=== PATIENT | female | born 1980 | race Caucasian/White ===

== ENCOUNTER → 2017-08-04 06:35 | Outpatient (CLI) | payer OTHER, SELFPAY ==
--- NOTE | 2017-08-04 | DI.MRI.S_ITS ---
PROCEDURE: MR ANKLE RT WO CON INDICATIONS: Posterior right ankle/heel pain TECHNIQUE: Noncontrast sagittal T1 spin echo and T2 fast spin echo with fat saturation, axial proton density fast spin echo and T2 fast spin echo with fat saturation, coronal T1 spin echo and T2 fast spin echo with fat saturation through the ankle/hindfoot. COMPARISON: None. FINDINGS: Image quality: Excellent. Bones and joints: No bone marrow contusions or fractures. No hindfoot coalitions. No osteochondral injuries of the talar dome. No pathologic joint effusions. Medial structures: The posterior tibialis, flexor digitorum longus, and flexor hallucis longus tendons are intact. There is minimal fluid surrounding the posterior tibialis and flexor digitorum longus tendons in keeping with low-grade tenosynovitis. The posterior tibial neurovascular bundle appears normal within the tarsal tunnel, without extrinsic mass effect. The deep layer (anterior and posterior tibiotalar ligaments) and superficial layer (tibionavicular, tibiospring, and tibiocalcaneal ligaments) of the deltoid ligament appear normal. The spring ligament components (superomedial calcaneonavicular, medioplantar oblique calcaneonavicular, and inferoplantar longitudinal ligaments) are intact. Lateral structures: The anterior talofibular, calcaneofibular, and posterior talofibular ligaments appear intact. More superiorly, the anterior and posterior tibiofibular ligaments appear intact, as is the intermalleolar ligament. The tibiofibular syndesmosis is normal in width at 2 mm or less. Thickening of the peroneus longus tendon is present with intrasubstance signal change and T2 hyperintensity in keeping with tendinopathy. This is primarily seen distal to the tip of the lateral malleolus. A discrete tear is not visualized. There is associated surrounding tenosynovitis. The peroneus brevis tendon appears grossly intact although there is minimal distal tenosynovitis, for example image 33 series 6. Adjacent bony peroneal tubercle and retrotrochlear prominence are normal in size. The sinus tarsi demonstrates normal fatty signal, without edema, fibrosis, or cyst formation. Visualized sinus tarsi components (cervical ligament, interosseous talocalcaneal ligament, roots of the inferior extensor retinaculum) appear normal. The calcaneonavicular and calcaneocuboid components of the bifurcate ligament appear intact. The dorsal calcaneocuboid ligament appears intact. Anterior structures: The tibialis anterior, extensor hallucis longus, and extensor digitorum longus tendons appear intact. The dorsal talonavicular ligament appears intact. Posterior and plantar structures: Achilles tendon is intact, although there is minimal distal insertional intrasubstance signal change and paratenonitis. Thickening and intrasubstance T2 hyperintensity involving the medial band of the plantar fascia at the calcaneal attachment. IMPRESSION: Peroneus longus tendinopathy and thickening, with surrounding tenosynovitis. Minimal peroneus brevis tenosynovitis. Medial band plantar fasciitis. Minimal Achilles insertional tendinopathy. Dictated by: Henry Huynh M.D. on 08/04/2017 at 8:30 Approved by: Henry Huynh M.D. on 08/04/2017 at 8:41
== END ==
PROVIDERS: Visit Provider Podiatrist
DX: M25.571 Pain in right ankle and joints of right foot (principal); M79.671 Pain in right foot; M65.9 Synovitis and tenosynovitis, unspecified; M72.2 Plantar fascial fibromatosis
CPT/HCPCS: 73721

== ENCOUNTER → 2019-04-28 10:09 | Outpatient (CLI) | payer OTHER, SELFPAY | PROVIDERS: Visit Provider Nurse Practitioner | DX: J02.9 Acute pharyngitis, unspecified (principal) | CPT/HCPCS: 87070 ==

== ENCOUNTER 2020-07-13 19:20 | Emergency (ER) | payer OTHER, SELFPAY ==
[2020-07-13] VITALS (7 sets, daily range): BP systolic 119–121; BP diastolic 58–75; PULSE 67–86; RESP 15; TEMP 37.1; O2SAT 93–100; BMI 29.2
--- NOTE | 2020-07-13 21:39 | PC.NURSE ---
friend out to desk stating that the baby crying in the next room was making her loose her mind (her = patient). Pt moved to another room.
--- NOTE | 2020-07-13 22:09 | ED.HEATRA ---
HPI - Head Injury General Chief complaint: Head Injury Stated complaint: Hammer Fell On Head, Not Doing So Well Time Seen by Provider: 07/13/20 22:00 Source: patient Mode of arrival: Ambulatory Limitations: no limitations History of Present Illness HPI Narrative: Patient is a 40-year-old female who presents with closed head injury. She states that a framing hammer which is approximately 20 oz is fell on top of her head from the top of a ladder. She did not lose consciousness is. She has not vomited she does have some nausea pain and sensitivity to light. She is not on any anti-platelet or anticoagulation medication. She denies any neck pain, no numbness tingling or weakness. She took 500 mg of Tylenol prior to right. MD Complaint: head injury Onset (ago): hour(s) Related Data Home Medications Medication Instructions Recorded Confirmed albuterol sulfate 90 mcg/actuation 2 puff INHALATION Q6H PRN 10/15/17 04/28/19 breath activated powder inhaler Allergies Allergy/AdvReac Type Severity Reaction Status Date / Time No Known Drug Allergies Allergy Verified 07/13/20 19:30 Review of Systems Review of Systems ROS Unobtainable: All systems reviewed & are unremarkable except as noted in HPI and below Constitutional Constitutional: Denies chills, Denies fever(s), Reports headache(s), Denies lethargy and Denies weakness Eyes Eyes: Denies change in vision, Denies eye discharge, Denies irritation and Denies loss of vision ENT Ears, Nose, Mouth, and Throat: Denies change in voice, Reports headache(s), Denies neck pain and Denies sore throat Cardiovascular Cardiovascular: Denies chest pain, Denies irregular heart rhythm, Denies lightheadedness, Denies palpitations, Denies dyspnea, Denies dyspnea on exertion and Denies orthopnea Respiratory Respiratory: Denies cough, Denies dyspnea, Denies dyspnea on exertion and Denies wheezing Gastrointestinal Gastrointestinal: Denies abdominal pain, Denies diarrhea, Reports nausea and Denies vomiting Musculoskeletal Musculoskeletal: Denies neck pain Integumentary/Breasts Skin/Breast: Denies pruritus, Denies erythema, Denies rash and Denies wounds Neurologic Neurologic: Reports headache(s), Denies loss of vision and Denies weakness Endocrine Endocrine: Denies palpitations Allergic/Immunologic Allergic/Immunologic: Denies wheezing Patient History Surgical History History of tonsillectomy Status post delivery Status post delivery Status post dilation and curettage Status post hysterectomy Social History Smoking Status: Never smoker alcohol intake: current Smoking Status: Never smoker alcohol intake frequency: holidays/special occasions only Substance Use Type: does not use Exam Initial Vital Signs Initial Vital Signs: Vital Signs Temperature 98.7 F 07/13/20 19:30 Pulse Rate 73 07/13/20 19:30 Respiratory Rate 15 07/13/20 19:30 Blood Pressure 121/75 07/13/20 19:30 Pulse Oximetry 100 07/13/20 19:30 GENERAL: 40-year-old female in dark room appears uncomfortable HEENT: Head atraumatic, no hematoma no laceration no crepitations depressions difficult to see where the hammer actually hit, EOMI, pupils reactive, no nystagmus face symmetric, moist mucous membranes NECK: No vertebral tenderness step-offs full flexion extension CARDIOVASCULAR: Regular rate and rhythm without murmurs, rubs or gallops. RESPIRATORY: Breath sounds equal bilaterally, no wheezes rales or rhonchi. ABDOMEN: Soft, nontender. Normoactive bowel sounds all 4 quadrants. No guarding or rebound. EXTREMITIES: Normal range of motion, no clubbing or edema. Neurovascularly intact NEUROLOGICAL: Alert and oriented x4.Normal gait and speech. Cranial nerves II through XII grossly intact. Sales Administrator strength equal bilaterally SKIN: Warm, dry, no laceration, no petechiae, no rashes or lesions. Scores [place] CT Head Rule Age <16 years old: No Patient on blood thinners: No Seizure after injury: No Exclusion: Patient NOT Excluded, Proceed to next steps GCS < 15 at 2 hr post trauma: No Suspected open or depressed skull fracture: No Any sign of basilar skull fracture (hemotympanum, raccoon eyes, Squires's sign, CSF goldy-/rhinorrhea): No Two or more episodes of vomiting: No Age greater or equal to 65 years: No Retrograde amnesia to the event greater or equal to 30 min: No Dangerous Mechanism (pedestrian vs. mv, occupant ejected from mv, fall from >3 ft or > 5 stairs): No Recommendation: CT unnecessary Course Orders Ordered: Discontinued Medications Ketorolac Tromethamine (Ketorolac 30 Mg/Ml Vial) 30 mg IM NOW ONE Stop: 07/13/20 22:15 Last Admin: 07/13/20 22:19 Dose: 30 mg Documented by: NEREIDA Ondansetron HCl (Ondansetron 4 Mg Odt) 4 mg SL NOW ONE Stop: 07/13/20 22:15 Last Admin: 07/13/20 22:19 Dose: 4 mg Documented by: NEREIDA Vital Signs Vital signs: Vital Signs - 8 hr 07/13/20 19:30 07/13/20 21:45 07/13/20 22:00 Temperature 98.7 F Pulse Rate 73 75 67 Respiratory Rate 15 Blood Pressure 121/75 Pulse Oximetry 100 97 95 07/13/20 22:23 07/13/20 22:30 07/13/20 23:00 Temperature Pulse Rate 86 67 70 Respiratory Rate Blood Pressure 119/65 Pulse Oximetry 97 96 93 07/13/20 23:04 Temperature Pulse Rate 75 Respiratory Rate Blood Pressure 120/58 L Pulse Oximetry 97 MDM - Head Injury MDM Narrative Medical decision making narrative: Patient likely has a concussion but no evidence of depressed skull fracture or evidence of significant trauma or severe mechanism. This time does not meet criteria for head CT. She is given Toradol and Zofran on fell asleep. Discussed warning signs with her and went to return to the ED. Discharge Plan Departure Patient Disposition: Home Clinical Impression: Closed head injury Qualifiers: Encounter type: initial encounter Qualified Code(s): S09.90XA - Unspecified injury of head, initial encounter Instructions: DI for Closed Head Injury Activity Restrictions/Additional Instructions: *You have been diagnosed with closed head injury *What to do: At this time he likely had concussion syndrome. No indication for imaging at this time. Please follow head injury instructions given in packing *Continue to take medications as directed Zofran 4 mg every 8 hours if needed for nausea or vomiting Tylenol 1000 mg every 6 hours if needed for pain Ibuprofen 800 mg every 8 hours if needed for [id number] pain *Follow up with your primary care provider in 2-3 days *Return to ER if you should have weakness, confusion, persistent vomiting, worsening headache or any new, worsening or concerning symptoms Prescriptions: No Action albuterol sulfate 90 mcg/actuation aerosol powdr breath activated 2 puff INHALATION Q6H PRNRF: 0 Referrals: Julio César Angel ARNP [Primary Care Provider] - Stand Alone Forms: Work Release Note
[2020-07-13] MEDS: ONDANSETRON 4 MG ODT SL (22:19)
[2020-07-13] MEDS: KETOROLAC 30 MG/ML VIAL IM (22:19)
== END 2020-07-13 23:18 | disposition home or self-care (01) ==
PROVIDERS: Emergency Provider Emergency Medicine; PCP Registered Nurse Diabetes Educator
DX: S09.90XA Unspecified injury of head, initial encounter (principal); W20.8XXA Other cause of strike by thrown, projected or falling object, initial encounter; R10.32 Left lower quadrant pain; R53.83 Other fatigue; Z00.00 Encounter for general adult medical examination without abnormal findings; Z83.2 Family history of diseases of the blood and blood-forming organs and certain disorders involving the immune mechanism
CPT/HCPCS: 36415; 80053; 80061; 81256; 82306; 82607; 84443; 85025; 96372; 99283; J1885

== ENCOUNTER → 2020-07-27 11:57 | Outpatient (CLI) | payer OTHER, SELFPAY ==
--- NOTE | 2020-07-27 | DI.MG.S_ITS ---
BILATERAL DIGITAL SCREENING MAMMOGRAM 3D/2D WITH CAD WITH AUGMENTATION: 07/27/2020 CLINICAL: Routine screening. Family history of breast cancer. Comparison is made to exams dated: 12/25/2010 mammogram and 12/25/2010 [facility]. The tissue of both breasts is heterogeneously dense. This may lower the sensitivity of mammography. Current study was also evaluated with a Computer Aided Detection (CAD) system. Bilateral breast implants are intact. There is a new 0.4 cm irregular asymmetry in the right breast middle depth central to the nipple seen on the craniocaudal view only 6 cm from the nipple. No other significant masses, calcifications, or other findings are seen in either breast. IMPRESSION: INCOMPLETE: NEEDS ADDITIONAL IMAGING EVALUATION The new 0.4 cm irregular asymmetry in the right breast is indeterminate. Additional views with possible ultrasound are recommended. This exam was interpreted at Station ID: [id number]. NOTE: For mammograms, a report in lay terms will be sent to the patient. Approximately 15% of breast malignancies will not be visualized mammographically. In the management of a palpable breast mass, a negative mammogram must not discourage biopsy of a clinically suspicious lesion. Electronically Signed By: Karan Walker acr/:07/27/2020 12:56:32 letter sent: Additional Imaging Needed ACR BI-RADS Category 0: Incomplete [id number]
--- NOTE | 2020-07-27 11:58 | DI.US.S_ITS ---
PROCEDURE: US PELVIC COMPLETE INDICATIONS: eval LLQ pain x 2 months, hx ovarian cyst TECHNIQUE: Real-time scanning was performed of the pelvic organs, with image documentation. Additional endovaginal scanning was necessary due to incomplete visualization of the adnexal and endometrial structures by transabdominal scanning. COMPARISON: None. FINDINGS: Uterus: Status post hysterectomy. Ovaries: The right ovary measures 3.0 x 4.4 x 4.7 centimeters. There is a complex cyst in the right ovary measuring 2.6 x 3.3 x 3.5 centimeters with mild peripheral vascularity. The left ovary measures 1.9 x 3.6 x 3.9 centimeters. There is a solid left ovarian mass measuring 1.0 x 0.8 x 1.3 centimeters. No associated vascularity with this lesion. Other: No pathologic free abdominal or pelvic fluid. IMPRESSION: Nonspecific solid appearing left ovarian mass, without associated vascularity. This may represent endometrioma although neoplasm cannot be strictly excluded. Correlation with any prior outside studies would be helpful, if available. Otherwise, consider a follow-up in 6-8 weeks to document stability/resolution and help exclude neoplasm. Complex cyst in the right ovary is likely hemorrhagic and physiologic, although again follow-up in 6-8 weeks recommended to help exclude neoplasm (considered unlikely). Dictated by: Eleazar Benavides M.D. on 07/27/2020 at 13:33 Approved by: Eleazar Benavides M.D. on 07/27/2020 at 13:34
== END ==
PROVIDERS: PCP Registered Nurse Diabetes Educator; Referring Provider Registered Nurse Diabetes Educator; Visit Provider Registered Nurse Diabetes Educator
DX: Z00.00 Encounter for general adult medical examination without abnormal findings (principal); R53.83 Other fatigue; R10.32 Left lower quadrant pain; R19.00 Intra-abdominal and pelvic swelling, mass and lump, unspecified site; N83.201 Unspecified ovarian cyst, right side; N64.89 Other specified disorders of breast; Z83.2 Family history of diseases of the blood and blood-forming organs and certain disorders involving the immune mechanism
CPT/HCPCS: 76856; 77063; 77067

== ENCOUNTER → 2020-08-06 16:52 | Outpatient (CLI) | payer OTHER, SELFPAY ==
[2020-08-06 18:06] LABS: HEMOLYSIS < 15 (0-50); Iron 86 ug/dL (37-170)
[2020-08-06 18:17] LABS: Percent Iron Saturation 28 % (15-50); Total Iron Binding Capacity 307 ug/dL (265-497); Transferrin 249 mg/dL (206-381)
[2020-08-06 18:39] LABS: Cancer Antigen 125 7.7 U/mL (0-35)
[2020-08-06 18:43] LABS: Ferritin 99 ng/mL (6-137)
[2020-08-08 12:01] LABS: Human Epididymis Prot 4 32.4 pmol/L (0.0-63.6)
== END ==
PROVIDERS: Obstetrics & Gynecology; PCP Registered Nurse Diabetes Educator; Referring Provider Registered Nurse Diabetes Educator; Visit Provider Registered Nurse Diabetes Educator
DX: R19.09 Other intra-abdominal and pelvic swelling, mass and lump (principal); G47.30 Sleep apnea, unspecified; R53.83 Other fatigue; Z14.8 Genetic carrier of other disease
CPT/HCPCS: 36415; 82728; 83540; 83550; 86304; 86305

== ENCOUNTER → 2020-08-27 09:35 | Outpatient (CLI) | payer OTHER, SELFPAY ==
--- NOTE | 2020-08-27 09:36 | DI.MG.S_ITS ---
UNILATERAL RIGHT DIGITAL DIAGNOSTIC MAMMOGRAM 3D/2D WITH ADDITIONAL VIEWS: 08/27/2020 CLINICAL: Additional evaluation requested from prior study. Comparison is made to exams dated: 07/27/2020 mammogram and 12/25/2010 mammogram - [facility]. The tissue of right breast is heterogeneously dense. This may lower the sensitivity of mammography. Right breast implant was not imaged on additional views. The 0.4 cm irregular asymmetry in the right breast middle depth central to the nipple seen on the craniocaudal view only is no longer seen and most likely is fibroglandular tissue. This is not seen in additional views. No other significant masses or calcifications are seen in the breast. IMPRESSION: INCOMPLETE: NEEDS ADDITIONAL IMAGING EVALUATION An ultrasound is recommended to confirm resolution of the irregular asymmetry in the right breast middle depth central to the nipple seen on the screening craniocaudal view only. This was performed immediately following this exam. This exam was interpreted at Station ID: [id number]. NOTE: For mammograms, a report in lay terms will be sent to the patient. Approximately 15% of breast malignancies will not be visualized mammographically. In the management of a palpable breast mass, a negative mammogram must not discourage biopsy of a clinically suspicious lesion. Electronically Signed By: Tiarra salazar/:08/27/2020 10:04:19 ACR BI-RADS Category 0: Incomplete [id number]
--- NOTE | 2020-08-27 09:36 | DI.US.S_ITS ---
LIMITED ULTRASOUND OF RIGHT BREAST: 08/27/2020 CLINICAL: Patient returns today to evaluate a focal asymmetry in the right breast. Comparison is made to exams dated: 08/27/2020 mammogram, 07/27/2020 mammogram, 12/25/2010 mammogram, and 12/25/2010 [facility]. Real-time ultrasound of the right breast 7-11 o'clock region was performed. Magana scale images of the real-time examination were reviewed. No significant abnormalities were seen sonographically in the right breast. Specifically, no finding to correspond to the patient's screening mammographic abnormality. IMPRESSION: PROBABLY BENIGN There is no sonographic correlate to the patient's screening mammography abnormality. This is probably benign tissue pattern on the mammogram. A follow-up right mammogram in 6 months is recommended to demonstrate stability. Findings and recommendations were conveyed to the patient at time of exam. This exam was interpreted at Station ID: [id number]. Electronically Signed By: Tiarra salazar/:08/27/2020 11:33:18 letter sent: Followup Recommended Ultrasound BI-RADS: 3 Probably benign
== END ==
PROVIDERS: PCP Registered Nurse Diabetes Educator; Referring Provider Registered Nurse Diabetes Educator; Visit Provider Registered Nurse Diabetes Educator
DX: R92.8 Other abnormal and inconclusive findings on diagnostic imaging of breast (principal); N64.89 Other specified disorders of breast
CPT/HCPCS: 76642; 77065; G0279

== ENCOUNTER → 2020-11-19 08:03 | Outpatient (CLI) | payer OTHER, SELFPAY ==
[2020-11-19 18:50] LABS: COVID19 -Nasal RAPID Negative (Negative)
== END ==
PROVIDERS: PCP Registered Nurse Diabetes Educator; Visit Provider Obstetrics & Gynecology
DX: Z20.822 Contact with and (suspected) exposure to COVID-19 (principal); Z01.812 Encounter for preprocedural laboratory examination
CPT/HCPCS: 87635

== ENCOUNTER 2020-11-20 09:54 | Day surgery (SDC) | payer OTHER, SELFPAY ==
[2020-11-13 12:35] VITALS: BMI 30.6
[2020-11-20] VITALS (14 sets, daily range): BP systolic 78–118; BP diastolic 27–72; PULSE 72–91; RESP 8–18; TEMP 36.4–36.8; O2SAT 93–99; BMI 30.6
--- NOTE | 2020-11-20 | PATH_ITS ---
[facility] Accession Number: [id number] . 01 Material submitted: . FALLOPIAN/OVARY - RIGHT FALLOPIAN TUBE AND OVARY . 02 Diagnosis: Right Fallopian Tube and Ovary, Laparoscopic Right Salpingo-oophorectomy (Weight 9 grams): Ovary with corpora albicantia, degenerating corpora lutea, corpus luteum cysts, patchy stromal thecosis, and a benign serous cyst (4 mm). Fallopian tube with multiple paratubal cysts (1-2 mm) and benign Walthard nests; negative for atypia or malignancy. MRV 11/22/2020 1536 Local . 02 Electronically signed: . Alyse Vences MD, Pathologist NPI- [id number] . 01 Gross description: . The specimen is received in formalin, labeled right fallopian tube and ovary and consists of a 9-gram, 3.5 x 2.7 x 1.5 cm ovary with a thompson cerebriform external surface. Sectioning reveals thompson-pink cut surfaces with multiple corpora albicantia and corpus luteum. A 0.4 x 0.3 x 0.2 cm smooth-walled serous-filled cyst is identified with no papillary excrescences. Additionally received is a 4.0 cm in length by 1.0 cm in diameter fallopian tube with a pink-purple ragged serosa and multiple paratubal cysts ranging from 0.1-0.2 cm. Sectioning reveals a thompson-pink mucosa and a stellate lumen measuring 0.3 cm in diameter. Desk Interviewer sections are submitted. . A1-A3: Desk Interviewer ovary. A4: Fallopian tube, margin (blue, en face), central cross sections and bisected fimbria. ([id number]) /MRV 11/21/[address] [place] [address] . 02 Pathologist provided ICD-10: N83.201, N83.202 . 02 CPT . 156385 Performed at: 01 [facility] [address] [id number] MD Renny Ortega MD Phone: [phone] Performed at: 02 [facility] [address] [place], [place] [id number] MD Gayle Knowles MD Phone: [phone]
[2020-11-20] MEDS: LACTATED RINGERS 1,000 ML 42 ML IV (10:34)
--- NOTE | 2020-11-20 11:32 | PM.HP.1 ---
History of Present Illness History of Present Illness Date Patient Seen: 11/20/20 Time Patient Seen: 11:32 Chief complaint: LAP REMOVAL OF FINA OVARIAN CYSTS Narrative: Patient is a 40-year-old 3 para 3 who presents for a diagnostic laparoscopy, possible lysis of adhesions or fulguration of endometriosis, possible removal of the ovaries, and bilateral salpingectomy. Patient has a history of a previous hysterectomy. She has had recurrent bilateral ovarian cysts. 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) Irregular menstrual cycle Migraines (~1994) Ovarian cyst Recurrent headache Sleep apnea Surgical History Anesthesia History of cosmetic surgery (~2008) History of tonsillectomy Status post delivery (~2003) Status post delivery (~2001) Status post dilation and curettage Status post hysterectomy (~2012) Family & Social History Family History Father History of heart disease Grandfather Cancer Grandfather Diabetes mellitus History of heart disease Hyperlipidemia Hypertension Stroke Grandmother Ovarian cancer Family/Other Hemochromatosis Rheumatoid arthritis Tobacco & Substance use: Smoking Status Never smoker alcohol intake current alcohol intake frequency holiday/special occasion Substance Use Type does not use Meds Home Medications and Allergies Home Medications Medication Instructions Recorded Confirmed Type albuterol sulfate 90 mcg/actuation 2 puff INHALATION Q6H PRN 10/15/17 11/20/20 History breath activated powder inhaler estradiol 0.05 mg/24 hr semiweekly 1 patch TRANSDERMAL 2XW #8 ea 11/19/20 11/20/20 Rx transdermal patch (Becca) oxycodone 5 mg tablet 5 mg PO Q4H PRN #20 tab 11/19/20 11/20/20 Rx Allergies Allergy/AdvReac Type Severity Reaction Status Date / Time No Known Drug Allergies Allergy Verified 11/20/20 09:57 Exam Vital Signs (past 8 hours): - 11/20/20 10:14 Temperature 98.2 F Pulse Rate 76 Respiratory Rate 18 Blood Pressure 101/67 Pulse Oximetry 99 Oxygen Delivery Method Room Air Narrative Exam Narrative: HEENT: No thyromegaly, no anterior cervical or supraclavicular lymphadenopathy. Lungs:Clear to auscultation bilaterally, no wheezes. Cardiovascular: Regular rate and rhythm, no murmurs, rubs, or gallops. Abdomen: Well-healed Pfannenstiel scars. No hepatosplenomegaly. No masses palpable. External genitalia: Normal Vagina: Normal Cervix: Absent Bimanual exam: No masses or tenderness . Assessment & Plan Assessment & Plan narrative: Assessment: 40-year-old 3 para 3 status post hysterectomy, with recurrent bilateral ovarian cysts Plan: Diagnostic laparoscopy with possible lysis of adhesions or fulguration of endometriosis, bilateral salpingectomy, possible bilateral oophorectomy The risks, benefits, and alternatives to the procedure were explained to the patient. The risks including bleeding, infection, injury to the bowel, bladder, or ureters. She understands these risks and agrees to proceed. A full par Q was held and consent form was signed. COVID-19 COVID-19 status: Negative Result date/Date tested (Pos, Neg/Pending): 11/19/20 Time Spent With Patient Time with patient: less than 30 minutes Critical Care time: I spent a total of [] minutes of critical care time on this patient's care today; this time is exclusive of procedural time.
--- NOTE | 2020-11-20 11:34 | PM.PREOP ---
Pre-operative Note COVID-19 COVID-19 status: Negative Result date/Date tested (Pos, Neg/Pending): 11/19/20 Interval Note History & Physical reviewed/Exam performed by Physician: Yes Changes to H&P: No H&P completed within 30 days and has changed as indicated here:: 11/20/20
--- NOTE | 2020-11-20 11:48 | PM.GYNOP.1 ---
Operative Date/Time/Diagnoses Date of procedure: 11/20/20 Time of procedure: 11:15 Post-op diagnosis: same Procedure & Clinicians Procedure: Procedures Operation Date: 11/20/20 11:30 <No data on this case meets the specified criteria>
--- NOTE | 2020-11-20 12:28 | SUR.OPER ---
Lithotomy on padded OR bed, head on pillow. Arms padded with gelpad and tucked at sides using draw sheet. Legs secured in padded yellow fins stirrups.
[2020-11-20] MEDS: EPINEPHrine 1 MG/ML 0.15 MG SUBCUT (12:55)
[2020-11-20] MEDS: BUPIVACAINE 0.5% (PF) VIAL 30 ML INJ (12:56)
--- NOTE | 2020-11-20 13:01 | PM.GYNOP.1 ---
Operative Date/Time/Diagnoses Date of procedure: 11/20/20 Time of procedure: 13:01 Pre-op diagnosis: Pelvic pain History of ovarian cysts Status post hysterectomy Post-op diagnosis: same Procedure & Clinicians Procedure: Procedures Operation Date: 11/20/20 11:30 Actual Procedure Side Surgeon p LAPAROSCOPIC RIGHT SALPHINGO-OOPHORECTOMY AND LYSIS OF ADHESIONS Right Cynthia Carrasquillo MD Indications: Pelvic pain History of ovarian cysts Status post hysterectomy Surgeon: Cynthia Carrasquillo Anesthesia Type: General and Local Operative Notes Findings: Uterus absent. Normal liver and gallbladder. Adhesions from the appendix to the right sidewall Adhesions of the colon to the anterior abdominal wall in the right lower quadrant Normal right ovary and tube Extensive adhesions of the colon and the left pelvic sidewall making it difficult to visualized of the left tube and ovary Dark old blood in the pelvis Normal left tube and ovary once the bowel were retract Closure Type: primary Specimen(s): right tube & ovary Estimated blood loss (mL): 10 Blood products transfused: none Procedure in detail: After informed consent was obtained, the patient was taken to the operating room where she was placed in the dorsal supine position. After adequate general endotracheal anesthesia was achieved, she was placed in the dorsal lithotomy position, and prepped and draped in the usual sterile fashion. A time-out was performed. A moistened sponge stick was placed into the vagina. Attention was turned to the abdomen where 6 cc of 0.5% Marcaine with epinephrine were injected at the upper edge of the umbilical incision. A 5 mm incision was made. the Veress needle was placed into the peritoneal cavity, and its placement confirmed by aspiration and drop test. The abdominal cavity was insufflated with 3.4 L of CO2. The Veress needle was removed, and a 5 mm trocar was placed without difficulty. Two other 5 mm incisions were made lateral to the midline at the level of the umbilicus after 6 cc of 0.5% Marcaine with epinephrine were injected. Two 5 mm trocars were placed under direct visualization. The right tube and ovary were identified and were found to be normal. In the right lower quadrant the appendix was tented up by an adhesion to the right sidewall. This was taken down with the Endo Leanne with cautery. There was also a piece of colon that was adhered by thick adhesions to the anterior abdominal wall. This was taken down with the Endo Leanne with care to avoid the bowel. On the patient's left side there were numerous bowel adhesions to the left pelvic sidewall. With retraction with several instruments of the left tube and ovary were identified and were found to be normal. Decision was made to leave the left tube and ovary in as it would have required extensive bowel adhesiolysis in order to get to the blood supply to the left tube and ovary. The right tube and ovary were grasped with an atraumatic grasper. Using the PlasmaKinetic was settings of 40 w, the infundibulopelvic ligament on the right side was cauterized and cut. 6 cc of 0.5% Marcaine with epinephrine were injected through the abdominoplasty incision above the pubic symphysis. A 12 mm incision was made. A 12 mm trocar was placed without difficulty. The small endobag was placed through the suprapubic incision. The right tube and ovary were placed into the bag. The trocar was removed. The bag was pulled up through the incision. The fascia was closed on the suprapubic incision with 0 Vicryl in a running fashion. The suprapubic incision was irrigated with warm normal saline. The abdomen was re-insufflated and the pedicles were examined and were found to be hemostatic. The instruments were removed from the abdomen. The CO2 was allowed to escape. All of the incisions were closed with 4-0 Monocryl in a subcuticular fashion. Steri-Strips and Allevyn dressings were placed. The moistened sponge stick was removed from the vagina. Sponge, lap, and instrument counts were correct x2. The patient tolerated the procedure well, and was taken to PACU in stable condition. Complications: none Post-operative Condition: stable Disposition: PACU Plan for aftercare: Home after recovery
[2020-11-20] MEDS: fentaNYL 100 MCG/2 ML INJ IV ×3 (13:15→14:27)
[2020-11-20] MEDS: OXYCODONE/ACETAMINOPHEN 5/325 TABLET 1 TAB PO ×2 (13:45→14:24)
--- NOTE | 2020-11-20 14:23 | SUR.PHASEI ---
Report from CHERYLE Stapleton for lunch relief. Pt stating pain 9/10 and crying softly off and on. Plan to medicate with a second percocet and iv fentanyl
--- NOTE | 2020-11-20 14:34 | SUR.PHASEI ---
Pt states feeling better now after iv fentanyl 50mcg administration. Sitting up eating crackers and drinking juice. No longer crying and in better spirits
--- NOTE | 2020-11-20 15:21 | SUR.PHASEII ---
Pt up and ambulating well, gait steady, up to br voiding without problems, iv dcd site clear, dressing in bathroom. Vag discharge clear no blood noted on pad or on tp after wiping.
--- NOTE | 2020-11-20 15:22 | SUR.PHASEII ---
Pt starting to feel diaphoretic and nauseated in bathroom, back to bed dressed and laying down with emesis bag, small amount of vomiting x1. Pt now resting in bed denies pain and states nausea is better now but wanting to lie down for just a bit
--- NOTE | 2020-11-20 15:51 | SUR.PHASEII ---
1545-Pt states she is feeling all better now and ready to go home, all dc instructions given and pt verbalizes understanding. VSS, pt dcd in stable condition via wc with all belongings and no complaints
== END 2020-11-20 15:45 | disposition home or self-care (01) ==
PROVIDERS: PCP Registered Nurse Diabetes Educator; Referring Provider Obstetrics & Gynecology; Visit Provider Obstetrics & Gynecology
PROC: (CPT 58662; principal; 2020-11-20 11:30)
DX: N83.11 Corpus luteum cyst of right ovary (principal); J45.20 Mild intermittent asthma, uncomplicated; K66.0 Peritoneal adhesions (postprocedural) (postinfection); N83.201 Unspecified ovarian cyst, right side; N83.8 Other noninflammatory disorders of ovary, fallopian tube and broad ligament
CPT/HCPCS: 58661; J0171; J1100; J1885; J2250; J2405; J2704; J3010

== ENCOUNTER → 2020-11-30 14:46 | Outpatient (CLI) | payer OTHER, SELFPAY | PROVIDERS: PCP Registered Nurse Diabetes Educator; Referring Provider Registered Nurse Diabetes Educator; Visit Provider Registered Nurse Diabetes Educator | DX: U07.1 COVID-19 (principal) | CPT/HCPCS: 36415; 86769 ==

== ENCOUNTER → 2020-12-13 11:43 | Outpatient (CLI) | payer OTHER, SELFPAY ==
--- NOTE | 2020-12-13 11:44 | DI.US.S_ITS ---
PROCEDURE: US PELVIC COMPLETE INDICATIONS: Pelvic pain TECHNIQUE: Real-time scanning was performed of the pelvic organs, with image documentation. Additional endovaginal scanning was necessary due to incomplete visualization of the adnexal and endometrial structures by transabdominal scanning. COMPARISON: [facility], US, US PELVIC COMPLETE, 07/27/2020, 12:49. [facility], US, US PELVIC COMPLETE, 09/17/2020, 15:26. [facility], US, US PELVIC COMPLETE, 11/19/2020, 16:02. FINDINGS: Uterus: Prior hysterectomy. Ovaries: Right ovary surgically absent. Left ovary measures 5.2 x 2.3 x 2.2 cm and there is a hyperechoic focus involving the left ovary measuring up to 1.7 cm and a thick-walled, complex cyst measuring also 17 cm. Other: No pathologic free abdominal or pelvic fluid. IMPRESSION: 1. Echogenic focus associated with the left ovary measuring up to 17 mm which may represent a small complex cyst; however solid mass cannot be excluded and 6-12 week follow-up ultrasound recommended. 2. Probable hemorrhagic cyst associated with the left ovary measuring up to 17 mm which can be reassessed on follow-up examination. Dictated by: Pradip Ni Varun Interpreted: Dakota Britt MD on 12/13/2020 at 12:53 Transcribed by: ROOSEVELT on 12/13/2020 at 12:56 Approved by: Dakota Britt M.D. on 12/13/2020 at 15:17
== END ==
PROVIDERS: PCP Registered Nurse Diabetes Educator; Referring Provider Obstetrics & Gynecology; Visit Provider Obstetrics & Gynecology
DX: R10.2 Pelvic and perineal pain (principal); N83.202 Unspecified ovarian cyst, left side; Z90.710 Acquired absence of both cervix and uterus; Z90.721 Acquired absence of ovaries, unilateral
CPT/HCPCS: 76830; 76856

== ENCOUNTER → 2020-12-20 14:13 | Outpatient (CLI) | payer OTHER, SELFPAY | PROVIDERS: PCP Registered Nurse Diabetes Educator; Visit Provider Obstetrics & Gynecology | DX: R30.9 Painful micturition, unspecified (principal) | CPT/HCPCS: 87077; 87086; 87186 ==

== ENCOUNTER → 2021-03-04 08:35 | Outpatient (CLI) | payer OTHER, SELFPAY ==
--- NOTE | 2021-03-04 08:36 | DI.MG.S_ITS ---
UNILATERAL RIGHT DIGITAL DIAGNOSTIC MAMMOGRAM 3D/2D SHORT-TERM FOLLOW-UP WITH AUGMENTATION: 03/04/2021 CLINICAL: Short term follow up. Comparison is made to exams dated: 08/27/2020 mammogram, 07/27/2020 mammogram, and 12/25/2010 mammogram - [facility]. The tissue of right breast is heterogeneously dense. This may lower the sensitivity of mammography. Right breast implant is intact. Bilateral breast implants are intact. The 0.4 cm irregular asymmetry in the right breast middle depth central to the nipple seen on the craniocaudal view only is no longer seen and most likely is fibroglandular tissue. This is not seen in additional views. No other significant masses or calcifications are seen in the breast. IMPRESSION: INCOMPLETE: NEEDS ADDITIONAL IMAGING EVALUATION No evidence of malignancy. Previously questioned asymmetry is no longer present. A 1 year screening mammogram is recommended. This exam was interpreted at Station ID: [id number]. NOTE: For mammograms, a report in lay terms will be sent to the patient. Approximately 15% of breast malignancies will not be visualized mammographically. In the management of a palpable breast mass, a negative mammogram must not discourage biopsy of a clinically suspicious lesion. Electronically Signed By: Eleazar Benavides M.D. jr/:03/04/2021 10:28:39 letter sent: Normal Exam ACR BI-RADS Category 0: Incomplete [id number]
== END ==
PROVIDERS: PCP Registered Nurse Diabetes Educator; Referring Provider Registered Nurse Diabetes Educator; Visit Provider Registered Nurse Diabetes Educator
DX: R92.8 Other abnormal and inconclusive findings on diagnostic imaging of breast (principal); N64.89 Other specified disorders of breast
CPT/HCPCS: 77065; G0279